=== PATIENT | male | born 1950 | race Caucasian/White ===

== ENCOUNTER 2018-09-22 05:37 | Observation (INO) | payer OTHER ==
[~2018-09-22] VITALS: Ht 182.9 cm; Wt 89.8 kg
[~2018-09-22 05:37] MED LIST: ASPIR 8181 MG PO; CRESTOR40 MG PO
[2018-09-22 08:47] VITALS: BP 116/73
[2018-09-22 13:23] VITALS: BP 117/72
[2018-09-22 17:05] VITALS: BP 119/68
--- NOTE | 2018-09-22 19:46 | NUR ---
Pt arrived to floor from recovery room around 1300 in stable condition. Post op assessment completed and vss.Polar pack care to right hip.Pt voided per urinal 3x from the time he arrived to unit till end of shift. at bs assisting with care.No verbal c/o.Report off to Jacque hernandez.
[2018-09-22 22:01] VITALS: BP 103/56
[2018-09-23 02:32] VITALS: BP 138/72
--- NOTE | 2018-09-23 03:55 | NUR ---
Assumed care of pt at 1900. Pt alert and oriented x4. No c/o pain. Surgical dressing clean and intact. Polar pack in place. IV antibiotics infused. Urinal at bedside. Call light within reach. Will continue to monitor.
--- NOTE | 2018-09-23 06:39 | O ---
[address] [address] OPERATIVE REPORT Name: JONAS ROSENTHAL Room #: 426-P [facility]..#: [id number] Admission: 09/22/18 ������������������ Attend Phys: Shaan Vee MD Discharge: ������������������ Date of : 48 Report #: [id number] THIS REPORT FOR: //name// CC: Lex Vee DATE OF SERVICE: 09/22/2018 SERVICE: Orthopedics. FACILITY: [facility] SURGEON: Shaan Vee MD SEED EXPERT: Lara Lema NP PREOPERATIVE DIAGNOSES: 1. Chronic right hip pain. 2. Right hip chronic abductor tendon tear. 3. 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 4. Gait dysfunction. POSTOPERATIVE DIAGNOSES: 1. Chronic right hip pain. 2. Right hip chronic abductor tendon tear. 3. 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 4. Gait dysfunction. PROCEDURE: Open trochanteric bursectomy with abductor tendon repair, right hip. COMPLICATIONS: None. DRAINS: None. SPECIMENS: Aerobic and anaerobic culture x 2. ANESTHESIA: General. FINDINGS: 1. Complete abductor tendon avulsion off the greater trochanter. 2. Trochanteric bursal fluid culture x 2. 3. [place] ReelX suture anchor x 3. HISTORY: The patient is a 68-year-old gentleman with a history of right total [address] [address] OPERATIVE REPORT Name: JONAS ROSENTHAL Room #: 426-P [facility]#: [id number] Admission: 09/22/18 ������������������ Attend Phys: Shaan Vee MD Discharge: ������������������ Date of : 48 Report #: [id number] hip arthroplasty that underwent revision. He had gait dysfunction and lateral-sided hip pain for quite some time. Imaging of the hip was consistent with an abductor tendon tear. We had discussion about optimal treatment measures. He elects to undergo surgical treatment. Risks, benefits, alternatives, and indication of surgery discussed with him in detail. Risks include, but not limited to, pain, bleeding, infection, injury to nerves or blood vessels, persistent pain despite surgical intervention, failure of any repairs, progression of any preexisting degenerative pathology, need for further surgery as well as complications related to anesthesia such as stroke, heart attack, pulmonary complications, thromboembolic disease and . Despite these risks, he wished to proceed. PROCEDURE IN DETAIL: After right lower extremity was correctly identified in the preoperative holding area as the operative extremity, the patient was taken to the operating room where general anesthesia was induced without complications. He turned into the lateral decubitus position with the right side up, left side down. He was padded appropriately. Prophylactic antibiotics with clindamycin were administered at appropriate time. Right leg was then prepped and draped in standard sterile fashion. Timeout procedure was performed. There was a palpable defect at the proximal aspect of the greater trochanter where the tendon had avulsed. The previous scar was opened to the central one-third and dissection was taken down through the previous scar tissue. Of note, there was one thick layer of scar tissue involving the tensor fascia tracy layer as well as the IT band and the gluteus musculature, all scarred in as one unit. I incised the fascial layer and the IT band and worked deep into the gluteus musculature. The abductor space was encountered. There was noted to be immediate egression of a clear serous appearing fluid, which was cultured with two swabs. The gluteus minimus and medius muscles were adhesed against the deep side of the gluteus melissa and so the initial stage preparation was soft tissue mobilization to separate the melissa on the posterior side as well as the tensor fascia tracy anteriorly from the underlying gluteus minimus and medius. The bone was clearly chronically exposed due to avulsion of the tendon. There were 2 osteophytes that were resected with the rongeur and then the lateral aspect of the trochanter was gently abraded with a Salgado elevator and then an osteotome was used to fish scale the lateral cortex to generate a bleeding surface. Care was taken to avoid injury to the cortex in general so as to not affect the purchase of the suture anchors. The first suture was then placed from the posterior aspect of the abductor tendon and musculature with running locking suture that worked from deep to superficial and ran from posterior-inferior around the top to the anterior-superior quadrant. A similar suture technique was used on the anterior side, working from the stable attached soft tissues anterior distally around to the posterior-superior quadrant. These were then passed into individual Janette ReelX anchors with a crossing suture pattern and then the sutures were tensioned accordingly, which provided good advancement of the [facility] [address] [place] [address] OPERATIVE REPORT Name: JOANS ROSENTHAL Room #: 426-P [facility] Yoselyn M.RRoe#: [id number] Admission: 09/22/18 ������������������ Attend Phys: Shaan Vee MD Discharge: ������������������ Date of : 48 Report #: [id number] tissue against the bone and compression of the repair. One stitch did tear free, but the locking mechanism of the suture configuration allowed it to still be effective and we later tied that limb into the additional suture anchor that was placed subsequently. The third Janette labral tape was then used in a similar fashion to address the more proximal portion of the abductor tendon and then the abductor was well repaired. A #2 suture finally was then used to complete the more superficial portion of the repair and a good secure repair was felt to be achieved at this point and the abductor moved as a unit with the underlying greater trochanter. The wound was then copiously irrigated and then 1 gram of vancomycin powder was placed within the wound both deep and superficially. The fascial layer was closed with 0 Vicryl suture in [id number] fashion and then the skin was closed with 2-0 Vicryl followed by a running subcuticular 3-0 Monocryl and Dermabond. Sterile dressing was then applied. The patient was awakened from anesthesia and taken to recovery room in stable condition. No complications. All counts were recorded as correct. ��������������������������������������������� <ELECTRONICALLY SIGNED> ���������������������������������������� By: Shaan Vee MD ��������������������������������������������� 09/23/18 [id number] Shaan Vee MD /nt
[2018-09-23 11:15] VITALS: BP 119/73
[2018-09-23 13:06] VITALS: BP 119/73
--- NOTE | 2018-09-23 13:30 | NUR ---
Assumed pt care at 7am.Pt in and out of bed for activities and well tolerated. Dr Vee here and dc order noted.Pt tolerated meds and diet.Dc summary completed and reviewed with pt and spouse.Rx and dc summary copy given.At 1330,pt dc home in accompanied by .
== END 2018-09-23 13:32 | disposition home or self-care (01) ==
LOC: TBA 05:37 → OR 05:37 → 4E 13:22 → OR 15:03 → 4E 09-23 13:32
PROVIDERS: ADMIT Orthopaedic Surgery Sports Medicine
DX: S76.211A Strain of adductor muscle, fascia and tendon of right thigh, initial encounter (principal); R26.9 Unspecified abnormalities of gait and mobility; Z96.641 Presence of right artificial hip joint; X58.XXXA Exposure to other specified factors, initial encounter; Y93.89 Activity, other specified; Y92.89 Other specified places as the place of occurrence of the external cause
CPT/HCPCS: 50010; 50101; 50382; 50414; 51320; 52001; 52282; 53078; 54118; 55430; 56526; 56527; 56528; 57103; 62110; 62900; 65131; 70005